=== PATIENT | female | born 1935 | race Caucasian/White ===

== ENCOUNTER 2016-07-17 16:09 | Emergency (ER) | payer OTHER ==
--- NOTE | 2016-07-17 17:03 | DIAGNOSTIC IMAGING REPORT ---
PROCEDURE: CT HEAD WITHOUT CONTRAST INDICATION: TRAUMA/INJURY TECHNIQUE: Axial CT images were acquired through the head. Coronal and sagittal reformations were created. COMPARISON: None. FINDINGS: Mild cerebral cortical atrophy. Moderate hypodensity in the periventricular and subcortical white matter. 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 No intracranial hemorrhage or extraaxial fluid collections. Ventricles are normal in size, shape and position. There is no mass, mass effect or midline shift. The calvarium is intact. The paranasal sinuses and mastoid air cells are normally aerated. The extracranial soft tissues and orbits are normal. IMPRESSION: 1. No CT evidence of acute intracranial process. 2. Age related involutional and white matter changes. 3. Findings discussed with Tiara Martinez at 05:[address] scans at this facility use dose modulation, iterative reconstruction, and/or weight-based dosing when appropriate to reduce radiation dose to as low as reasonably achievable.
--- NOTE | 2016-07-17 17:03 | DIAGNOSTIC IMAGING REPORT ---
PROCEDURE: CT HEAD WITHOUT CONTRAST INDICATION: TRAUMA/INJURY TECHNIQUE: Axial CT images were acquired through the head. Coronal and sagittal reformations were created. COMPARISON: None. FINDINGS: Mild cerebral cortical atrophy. Moderate hypodensity in the periventricular and subcortical white matter. 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 No intracranial hemorrhage or extraaxial fluid collections. Ventricles are normal in size, shape and position. There is no mass, mass effect or midline shift. The calvarium is intact. The paranasal sinuses and mastoid air cells are normally aerated. The extracranial soft tissues and orbits are normal. IMPRESSION: 1. No CT evidence of acute intracranial process. 2. Age related involutional and white matter changes. 3. Findings discussed with iTara Martinez at 05:[address] scans at this facility use dose modulation, iterative reconstruction, and/or weight-based dosing when appropriate to reduce radiation dose to as low as reasonably achievable.
--- NOTE | 2016-07-17 17:05 | ED CLINICAL REPORT ---
Clinical Report - Physicians/Mid Levels [facility] [address] [place] [address] 07/17/2016 16:12 Patient: ONEL CANALES Time Seen: 16:19; upon arrival, initial patient contact, initial documentation, patient care assumed. Arrived- By private vehicle. Historian- patient. HISTORY OF PRESENT ILLNESS Chief Complaint: FALL. Location of injuries- head. The injury occurred today. Fell while walking and landed on a carpeted surface; tripped (over her slipper). Occurred at home. The patient complains of mild pain. The patient sustained a blow to the head. No neck pain, loss of consciousness or seizure. Not dazed. (ems came to house after incident and pt denied tx, went to clinic towboat captain and sent here for further eval). REVIEW OF SYSTEMS No numbness, dizziness, loss of vision, chest pain or difficulty breathing. No weakness, headache, abdominal pain or laceration. She has no pain on weight bearing. All systems otherwise negative, except as recorded above. PAST HISTORY See nurses notes. PROBLEMS: Skin cancer . --16:49 Gris Underwood R.N. ADDITIONAL SURGERIES: Appendectomy. Bunion removal . Hysterectomy. Hysterectomy . Parathyroidectomy. --16:49 Gris Underwood R.N. SOCIAL HISTORY Never smoker. No alcohol use or drug use. No recent travel. Is a local resident. FAMILY HISTORY No significant family medical history. ADDITIONAL NOTES The nursing notes have been reviewed with agreement regarding the chief complaint, HPI, ROS, PMH and patient medications and allergies. PHYSICAL EXAM Vital Signs: 07/17/2016 16:25 BP: 181/77. HR: 74. RR: 18. O2 saturation: 92%. Temp: 98.4 F. Have been reviewed as normal and appear to be correct. Appearance: Alert. Oriented X3. No acute distress. Head: Swelling of head present. Head non-tender. Right anglican: mild swelling and small ecchymosis of the upper anterior aspect of the right anglican. No erythema, tenderness, laceration, abrasion or puncture wound. No foreign body or deformity. Eyes: Pupils equal, round and reactive to light. EOM intact. ENT: No dental injury. Pharynx normal. Neck: Painless ROM. Non-tender. CVS: Heart sounds normal. Pulses normal. Respiratory: Breath sounds normal. Chest nontender. Abdomen: No visible injury. Soft and nontender. Back: No tenderness. ROM normal. Skin: Skin intact. Skin warm and dry. Normal skin color. Normal skin turgor. Extremities: Normal inspection. Pelvis stable. Extremities atraumatic. No lower extremity edema. Neuro: Oriented X 3. No motor deficit. No sensory deficit. LABS, X-RAYS, AND EKG CT Head: No acute disease. The study was interpreted by the radiologist and discussed with the radiologist. Interpretation time: 17:02. PROGRESS AND PROCEDURES Patient counseled in person regarding the patient's stable condition, test results and diagnosis. 17:02. Differential Diagnosis: Other possible considerations: fall, head injury, contusion, sprain, fx, lac, abrasion. Above considerations are based on history, physical exam and other information. Differential diagnosis was discussed with patient. Disposition: Discharged home in good and unchanged condition (17:04). Condition: good and stable. CLINICAL IMPRESSION Single contusion to the forehead.No hematoma or skin abrasion. Fall on same level by tripping. INSTRUCTIONS Warnings: HEAD INJURY PRECAUTIONS: An observer must check on the patient frequently for the next 24 hours to confirm that the patient responds as expected, is not confused, has no new weakness or numbness, and has no other problems. GENERAL WARNINGS: Return or contact your physician immediately if your condition worsens or changes unexpectedly, if not improving as expected, or if other problems arise. SPECIFICALLY, return if you develop numbness or incontinence of feces (loss of bowel control) or urine (loss of bladder control). Follow-up: Follow up with your doctor in about two days even if well. Call for an appointment. Summary of care provided to patient. Understanding of the discharge instructions verbalized by patient. (Electronically signed by Tiara Martinez A.R.N.P. 07/17/2016 18:33)
--- NOTE | 2016-07-17 17:05 | ED NURSING NOTES ---
Clinical Report - Nurses [facility] [address] [place] [address] 07/17/2016 16:12 Patient: ONEL CANALES TRIAGE Triage time 16:20 Jul 17 2016. Acuity: LEVEL 3. Chief Complaint: FALL while standing, onto a carpeted surface and landed on their head; lost balance. 16:25 07/17/16. SEPSIS SCREEN: Sepsis Screen. Negative (no infection suspected/documented). DAVID COMA SCORE: [place] Coma Scale: 15- eyes open spontaneously (4); best verbal response- oriented x 4 (5); best motor response- obeys commands (6). --16:43 Gris Underwood R.N. 16:25 07/17/16. BP: 181/77. HR: 74. RR: 18. O2 saturation: 92%. Temp: 98.4 F. Pain level now 2/10. --16:43 Gris Underwood R.N. Weight: 66.6 kg stated. Height/Length: 60 inches Per Patient. BMI: 28.7. --16:51 Gris Underwood R.N. Medications Venlafaxine HCl ER Oral (Tablet Extended Release 24 Hour 37.5 mg) 1 tablet. --16:37 Gris Underwood R.N. Pantoprazole Sodium Oral 40 mg, daily. --16:38 Gris Underwood R.N. Premarin Oral (Tablet 0.625 mg) 1 tablet, daily. --16:38 Gris Underwood R.N. LamoTRIgine Oral (Tablet Dispersible 100 mg) 2 tablets. --16:39 Gris Underwood R.N. Allergies No Known Drug Allergy. --16:39 Gris Underwood R.N. History Arrived by private vehicle. Historian: patient. Accompanied by friend. Primary physician (). This occurred (0500 AM). Occurred at home. She has had dizziness and neck pain (slight "stiff" per pt). She has had trouble walking. The patient has been limping when trying to walk. No loss of consciousness. No alteration in mental status, extremity pain, back pain, limited ROM present or difficulty breathing. Treatment NET APPLICATIONS DEVELOPER: None. Trauma activation: Pre-hospital notification of patient arrival was not received. PAST MEDICAL HX: Osteoporosis. No history of diabetes mellitus, heart disease, stroke or hypertension. No history of dementia. Tetanus status: unknown. SOCIAL HX: No infectious disease exposure. SELF HARM ASSESSMENT: A self harm assessment was performed. The patient answered "no" to the question "Have you recently felt down, depressed, or hopeless?" and "Do you have thoughts of harming or killing yourself?". NUTRITIONAL RISK ASSESSMENT: The nutritional risk assessment revealed no deficiencies. FUNCTIONAL ASSESSMENT: Functional assessment: no impairments noted. LEARNING NEEDS ASSESSMENT: The learning needs assessment revealed no barriers. ABUSE ASSESSMENT: Abuse assessment: (yes) The patient was asked "Do you feel safe in your home?". FALL RISK ASSESSMENT: Fall risk assessment completed. Risk factors identified include nausea, dizziness and patient age greater than 65 years, history of fall and impairment of mobility. Fall interventions initiated. Side rails up x2. Brakes on Bed in low position. Patient visible from nurses' station and identified as a fall risk. Call light in reach of patient. Instructed not to get up without assistance. SKIN INTEGRITY ASSESSMENT: Skin integrity risk assessment completed. No skin integrity risk identified. --16:43 Gris Underwood R.N. SOCIAL HX: Never smoker. No alcohol use or drug use. --16:49 Gris Underwood R.N. PROBLEMS: Skin cancer . --16:49 Gris Underwood R.N. ADDITIONAL SURGERIES: Appendectomy. Bunion removal . Hysterectomy. Hysterectomy . Parathyroidectomy. --16:49 Gris Underwood R.N. Interventions ID band on patient. --16:43 Gris Underwood R.N. PHYSICAL ASSESSMENT Ambulatory to room. GENERAL / NEURO / PSYCH: Alert. Oriented X 4. Appears in no acute distress. Pupillary exam: Right pupil 3mm, round and briskly reactive. HEENT: Pupils equal, round and reactive to light. Head: tenderness and abrasion present in the right temporal area. Head non-tender. RESPIRATORY: Respirations not labored. Chest nontender. Breath sounds within normal limits. CVS: Normal heart rate and rhythm. Pulses within normal limits. Capillary refill less than 2 seconds. GI / : Abdomen soft and nontender. ( Last BM this am. States goes to the bathroom every two hours no burning or pain.). EXTREMITIES: Extremities exhibit normal ROM. Neuro-vascular status intact to the extremity. SKIN: Skin intact. Skin is warm and dry. --16:51 Gris Underwood R.N. NURSING PROGRESS NOTES The initial plan of care for this patient includes an assessment with efforts to address the patient's anxiety; patient positioning and appropriate ambient lighting; impairment of the neurological system; mobility impairments. This plan of care was discussed with the patient. Reassurance given. Call light placed in reach. Side rails up x 2. Bed placed in lowest position. Brakes of bed on. --16:51 Gris Underwood R.N. DISPOSITION / DISCHARGE Departure time: Jul 17 2016. Condition at departure: improved. No learning barriers present. Discharge instructions provided and reviewed with the patient. Reviewed warnings. Reviewed medication(s). Treatments reviewed. Reviewed referrals. Patient verbalized understanding. Written instructions provided in Yakut. The patient was discharged home and accompanied by conflicts analyst. She left the Emergency Department ambulatory and via private vehicle. Roller Repairer driving. --17:28 Gris Underwood R.N. 17:27 07/17/16. BP: 177/80. HR: 69. RR: 18. O2 saturation: 97%. Temp: 98.4 F. Pain level now 2/10. --17:28 Gris Underwood R.N. Departure time: 17:Jul 17 2016. ( Patient has a follow up appointment for tomorrow.). --17:29 Gris Underwood R.N. Locked/Released at 07/20/2016 18:36 by Gris Underwood R.N.
--- NOTE | 2016-07-17 17:05 | ED ORDER SUMMARY ---
..... Patient: ONEL CANALES OrderSheet [facility] VisitID: [id number] [address] [place] [address] 81y, F Registration Date/Time: 07/17/2016 ORDER SHEET Weight: 66.6 kg (stated) Allergies: No Known Drug Allergy GENERAL ORDERS: CT Head wo Cont Urgent (16:28 07/17/2016 Rubin A.R.N.P.) ([facility] 16:48 [facility]) MEDICATION ORDERS: IV FLUIDS: ORDER SHEET NOTES: [Electronically signed by Tiara MartinezR.N.P. (18:33 07/17/2016)] [Electronically signed by Gris Underwood R.N. (18:36 07/20/2016)] [Electronically locked/signed by Gris Underwood R.N. (18:36 07/20/2016)]
--- NOTE | 2016-07-17 17:05 | ED NURSING NOTES ---
Clinical Report - Nurses [facility] [address] [place] [address] 07/17/2016 16:12 Patient: ONEL CANALES TRIAGE Triage time 16:20 Jul 17 2016. Acuity: LEVEL 3. Chief Complaint: FALL while standing, onto a carpeted surface and landed on their head; lost balance. 16:25 07/17/16. SEPSIS SCREEN: Sepsis Screen. Negative (no infection suspected/documented). DAVID COMA SCORE: [place] Coma Scale: 15- eyes open spontaneously (4); best verbal response- oriented x 4 (5); best motor response- obeys commands (6). --16:43 Gris Underwood R.N. 16:25 07/17/16. BP: 181/77. HR: 74. RR: 18. O2 saturation: 92%. Temp: 98.4 F. Pain level now 2/10. --16:43 Gris Underwood R.N. Weight: 66.6 kg stated. Height/Length: 60 inches Per Patient. BMI: 28.7. --16:51 Gris Underwood R.N. Medications Venlafaxine HCl ER Oral (Tablet Extended Release 24 Hour 37.5 mg) 1 tablet. --16:37 Gris Underwood R.N. Pantoprazole Sodium Oral 40 mg, daily. --16:38 Gris Underwood R.N. Premarin Oral (Tablet 0.625 mg) 1 tablet, daily. --16:38 Gris Underwood R.N. LamoTRIgine Oral (Tablet Dispersible 100 mg) 2 tablets. --16:39 Gris Underwood R.N. Allergies No Known Drug Allergy. --16:39 Gris Underwood R.N. History Arrived by private vehicle. Historian: patient. Accompanied by friend. Primary physician (). This occurred (0500 AM). Occurred at home. She has had dizziness and neck pain (slight "stiff" per pt). She has had trouble walking. The patient has been limping when trying to walk. No loss of consciousness. No alteration in mental status, extremity pain, back pain, limited ROM present or difficulty breathing. Treatment MASTER BARBER: None. Trauma activation: Pre-hospital notification of patient arrival was not received. PAST MEDICAL HX: Osteoporosis. No history of diabetes mellitus, heart disease, stroke or hypertension. No history of dementia. Tetanus status: unknown. SOCIAL HX: No infectious disease exposure. SELF HARM ASSESSMENT: A self harm assessment was performed. The patient answered "no" to the question "Have you recently felt down, depressed, or hopeless?" and "Do you have thoughts of harming or killing yourself?". NUTRITIONAL RISK ASSESSMENT: The nutritional risk assessment revealed no deficiencies. FUNCTIONAL ASSESSMENT: Functional assessment: no impairments noted. LEARNING NEEDS ASSESSMENT: The learning needs assessment revealed no barriers. ABUSE ASSESSMENT: Abuse assessment: (yes) The patient was asked "Do you feel safe in your home?". FALL RISK ASSESSMENT: Fall risk assessment completed. Risk factors identified include nausea, dizziness and patient age greater than 65 years, history of fall and impairment of mobility. Fall interventions initiated. Side rails up x2. Brakes on Bed in low position. Patient visible from nurses' station and identified as a fall risk. Call light in reach of patient. Instructed not to get up without assistance. SKIN INTEGRITY ASSESSMENT: Skin integrity risk assessment completed. No skin integrity risk identified. --16:43 Gris Underwood R.N. SOCIAL HX: Never smoker. No alcohol use or drug use. --16:49 Gris Underwood R.N. PROBLEMS: Skin cancer . --16:49 Gris Underwood R.N. ADDITIONAL SURGERIES: Appendectomy. Bunion removal . Hysterectomy. Hysterectomy . Parathyroidectomy. --16:49 Gris Underwood R.N. Interventions ID band on patient. --16:43 Gris Underwood R.N. PHYSICAL ASSESSMENT Ambulatory to room. GENERAL / NEURO / PSYCH: Alert. Oriented X 4. Appears in no acute distress. Pupillary exam: Right pupil 3mm, round and briskly reactive. HEENT: Pupils equal, round and reactive to light. Head: tenderness and abrasion present in the right temporal area. Head non-tender. RESPIRATORY: Respirations not labored. Chest nontender. Breath sounds within normal limits. CVS: Normal heart rate and rhythm. Pulses within normal limits. Capillary refill less than 2 seconds. GI / : Abdomen soft and nontender. ( Last BM this am. States goes to the bathroom every two hours no burning or pain.). EXTREMITIES: Extremities exhibit normal ROM. Neuro-vascular status intact to the extremity. SKIN: Skin intact. Skin is warm and dry. --16:51 Gris Underwood R.N. NURSING PROGRESS NOTES The initial plan of care for this patient includes an assessment with efforts to address the patient's anxiety; patient positioning and appropriate ambient lighting; impairment of the neurological system; mobility impairments. This plan of care was discussed with the patient. Reassurance given. Call light placed in reach. Side rails up x 2. Bed placed in lowest position. Brakes of bed on. --16:51 Gris Underwood R.N. DISPOSITION / DISCHARGE Departure time: Jul 17 2016. Condition at departure: improved. No learning barriers present. Discharge instructions provided and reviewed with the patient. Reviewed warnings. Reviewed medication(s). Treatments reviewed. Reviewed referrals. Patient verbalized understanding. Written instructions provided in Greek. The patient was discharged home and accompanied by emergency vehicle operations instructor. She left the Emergency Department ambulatory and via private vehicle. Scrap Worker driving. --17:28 Gris Underwood R.N. 17:27 07/17/16. BP: 177/80. HR: 69. RR: 18. O2 saturation: 97%. Temp: 98.4 F. Pain level now 2/10. --17:28 Gris Underwood R.N. Departure time: 17:Jul 17 2016. ( Patient has a follow up appointment for tomorrow.). --17:29 Gris Underwood R.N. Locked/Released at 07/20/2016 18:36 by Gris Underwood R.N.
--- NOTE | 2016-07-17 17:05 | ED CLINICAL REPORT ---
Clinical Report - Physicians/Mid Levels [facility] [address] [place] [address] 07/17/2016 16:12 Patient: ONEL CANALES Time Seen: 16:19; upon arrival, initial patient contact, initial documentation, patient care assumed. Arrived- By private vehicle. Historian- patient. HISTORY OF PRESENT ILLNESS Chief Complaint: FALL. Location of injuries- head. The injury occurred today. Fell while walking and landed on a carpeted surface; tripped (over her slipper). Occurred at home. The patient complains of mild pain. The patient sustained a blow to the head. No neck pain, loss of consciousness or seizure. Not dazed. (ems came to house after incident and pt denied tx, went to clinic sloop captain and sent here for further eval). REVIEW OF SYSTEMS No numbness, dizziness, loss of vision, chest pain or difficulty breathing. No weakness, headache, abdominal pain or laceration. She has no pain on weight bearing. All systems otherwise negative, except as recorded above. PAST HISTORY See nurses notes. PROBLEMS: Skin cancer . --16:49 Gris Underwood R.N. ADDITIONAL SURGERIES: Appendectomy. Bunion removal . Hysterectomy. Hysterectomy . Parathyroidectomy. --16:49 Gris Underwood R.N. SOCIAL HISTORY Never smoker. No alcohol use or drug use. No recent travel. Is a local resident. FAMILY HISTORY No significant family medical history. ADDITIONAL NOTES The nursing notes have been reviewed with agreement regarding the chief complaint, HPI, ROS, PMH and patient medications and allergies. PHYSICAL EXAM Vital Signs: 07/17/2016 16:25 BP: 181/77. HR: 74. RR: 18. O2 saturation: 92%. Temp: 98.4 F. Have been reviewed as normal and appear to be correct. Appearance: Alert. Oriented X3. No acute distress. Head: Swelling of head present. Head non-tender. Right methodist: mild swelling and small ecchymosis of the upper anterior aspect of the right methodist. No erythema, tenderness, laceration, abrasion or puncture wound. No foreign body or deformity. Eyes: Pupils equal, round and reactive to light. EOM intact. ENT: No dental injury. Pharynx normal. Neck: Painless ROM. Non-tender. CVS: Heart sounds normal. Pulses normal. Respiratory: Breath sounds normal. Chest nontender. Abdomen: No visible injury. Soft and nontender. Back: No tenderness. ROM normal. Skin: Skin intact. Skin warm and dry. Normal skin color. Normal skin turgor. Extremities: Normal inspection. Pelvis stable. Extremities atraumatic. No lower extremity edema. Neuro: Oriented X 3. No motor deficit. No sensory deficit. LABS, X-RAYS, AND EKG CT Head: No acute disease. The study was interpreted by the radiologist and discussed with the radiologist. Interpretation time: 17:02. PROGRESS AND PROCEDURES Patient counseled in person regarding the patient's stable condition, test results and diagnosis. 17:02. Differential Diagnosis: Other possible considerations: fall, head injury, contusion, sprain, fx, lac, abrasion. Above considerations are based on history, physical exam and other information. Differential diagnosis was discussed with patient. Disposition: Discharged home in good and unchanged condition (17:04). Condition: good and stable. CLINICAL IMPRESSION Single contusion to the forehead.No hematoma or skin abrasion. Fall on same level by tripping. INSTRUCTIONS Warnings: HEAD INJURY PRECAUTIONS: An observer must check on the patient frequently for the next 24 hours to confirm that the patient responds as expected, is not confused, has no new weakness or numbness, and has no other problems. GENERAL WARNINGS: Return or contact your physician immediately if your condition worsens or changes unexpectedly, if not improving as expected, or if other problems arise. SPECIFICALLY, return if you develop numbness or incontinence of feces (loss of bowel control) or urine (loss of bladder control). Follow-up: Follow up with your doctor in about two days even if well. Call for an appointment. Summary of care provided to patient. Understanding of the discharge instructions verbalized by patient. (Electronically signed by Tiara Martinez A.R.N.P. 07/17/2016 18:33)
--- NOTE | 2016-07-17 17:05 | ED ORDER SUMMARY ---
..... Patient: ONEL CANALES OrderSheet [facility] VisitID: [id number] [address] [place] [address] 81y, F Registration Date/Time: 07/17/2016 ORDER SHEET Weight: 66.6 kg (stated) Allergies: No Known Drug Allergy GENERAL ORDERS: CT Head wo Cont Urgent (16:28 07/17/2016 Rubin A.R.N.P.) ([facility] 16:48 [facility]) MEDICATION ORDERS: IV FLUIDS: ORDER SHEET NOTES: [Electronically signed by Tiara MartinezR.N.P. (18:33 07/17/2016)] [Electronically signed by Gris Underwood R.N. (18:36 07/20/2016)] [Electronically locked/signed by Gris Underwood R.N. (18:36 07/20/2016)]
--- NOTE | 2016-07-20 18:37 | ED MED RECONCILIATION SUMMARY ---
Patient: ONEL CANALES Medication Reconciliation Report [facility] VisitID: [id number] [address] [place] [address] 81y, F Registration Date/Time: 07/17/2016 Weight: 66.6 kg Height/Length: 60 in. BMI: 28.7 ALLERGIES: No Known Drug Allergy The patient's Home Medications are listed below: THE FOLLOWING MEDICATIONS NEED TO BE RECONCILED: LamoTRIgine Oral (100 mg) 2 tablets Pantoprazole Sodium Oral 40 mg, daily Premarin Oral (0.625 mg) 1 tablet, daily Venlafaxine HCl ER Oral (37.5 mg) 1 tablet The source(s) of the original Home Medication information: Not obtained. The following Medications were given to the patient in the Emergency Department: None. The following Medications were prescribed to the patient: None.
--- NOTE | 2016-07-20 18:37 | ED MED RECONCILIATION SUMMARY ---
Patient: ONEL CANALES Medication Reconciliation Report [facility] VisitID: [id number] [address] [place] [address] 81y, F Registration Date/Time: 07/17/2016 Weight: 66.6 kg Height/Length: 60 in. BMI: 28.7 ALLERGIES: No Known Drug Allergy The patient's Home Medications are listed below: THE FOLLOWING MEDICATIONS NEED TO BE RECONCILED: LamoTRIgine Oral (100 mg) 2 tablets Pantoprazole Sodium Oral 40 mg, daily Premarin Oral (0.625 mg) 1 tablet, daily Venlafaxine HCl ER Oral (37.5 mg) 1 tablet The source(s) of the original Home Medication information: Not obtained. The following Medications were given to the patient in the Emergency Department: None. The following Medications were prescribed to the patient: None.
--- NOTE | 2016-07-20 18:37 | ED DISCHARGE INSTRUCTIONS ---
Patient: ONEL CANALES General Instructions [facility] VisitID: [id number] [place] [address] 81y, F Registration Date/Time: 07/17/2016 Single contusion to the forehead.No hematoma or skin abrasion. Fall on same level by tripping. INSTRUCTIONS Warnings: HEAD INJURY PRECAUTIONS: An observer must check on the patient frequently for the next 24 hours to confirm that the patient responds as expected, is not confused, has no new weakness or numbness, and has no other problems. GENERAL WARNINGS: Return or contact your physician immediately if your condition worsens or changes unexpectedly, if not improving as expected, or if other problems arise. SPECIFICALLY, return if you develop numbness or incontinence of feces (loss of bowel control) or urine (loss of bladder control). Follow-up: Follow up with your doctor in about two days even if well. Call for an appointment. Summary of care provided to patient. Understanding of the discharge instructions verbalized by patient. ADDITIONAL INFORMATION Mechanical Fall You have had a fall today. It appears that the cause is mechanical. That means that you slipped, tripped or lost your balance. If your fall had been due to fainting or a seizure, further tests would be required. Home Care: Rest today and resume your normal activities when you are feeling back to normal. If you were injured during the fall, follow the advice from your doctor regarding care of your injury. You may use acetaminophen (Tylenol) or ibuprofen (Motrin, Advil) to control pain, unless another pain medicine was prescribed. [NOTE: If you have chronic liver or kidney disease or ever had a stomach ulcer or GI bleeding, talk with your doctor before using these medicines.] Fall Prevention: Was there anything that caused your fall that can be fixed, removed, or replaced? Make your home safe by keeping walkways clear of objects you may trip over. Use non-slip pads under rugs. Do not walk in poorly lit areas. Do not stand on chairs or wobbly ladders. Use caution when reaching overhead or looking upward. This position can cause a loss of balance. Be sure your shoes fit properly, have non-slip bottoms and are in good condition. Be cautious when going up and down curbs, and walking on uneven sidewalks. If your balance is poor, consider using a cane or walker. Stay as active as you can. Balance, flexibility, strength, and endurance all come from exercise. They all play a role in preventing falls. Follow Up with your doctor or as advised by our staff. Get Prompt Medical Attention if any of the following occur: Repeated mechanical falls, or unexplained falls Dizziness, fainting or seizure Severe headache Chest pain or shortness of breath Palpitations (very rapid or very slow or irregular heartbeat) Blood in vomit, stools (black or red color) Weakness of an arm or leg or one side of the face Difficulty with speech or vision Contusion,Soft Tissue You have a CONTUSION, which is a bruise with swelling and some bleeding under the skin. There are no broken bones. This injury takes a few days to a few weeks to heal. Home Care: 1) Keep the injured part elevated to reduce pain and swelling. This is especially important during the first 48 hours. 2) Make an ice pack (ice cubes in a plastic bag, wrapped in a towel) and apply for 20 minutes every 1-2 hours the first day. Continue this 3-4 times a day until the pain and swelling goes away. 3) You may use acetaminophen (Tylenol) or ibuprofen (Motrin, Advil) to control pain, unless another pain medicine was prescribed. [ NOTE : If you have chronic liver or kidney disease or ever had a stomach ulcer or GI bleeding, talk with your doctor before using these medicines.] Follow Up with your doctor or this facility if you are not improving within the next THREE days. [NOTE: If X-rays were taken, they will be reviewed by a radiologist. You will be notified of any new findings that may affect your care.] Get Prompt Medical Attention if any of the following occur: -- Pain or swelling increases -- Injured arm or leg becomes cold, blue, numb or tingly -- Redness, warmth or drainage from the skin Facial Contusion (No Wake-Up) A facial contusion is a bruise with swelling and sometimes bleeding under the skin. The swelling should start to go down within two days. Although there may be no signs of a serious injury at this time, symptoms may appear later which could be a sign of a more serious problem. Therefore, watch for the warning signs below. Home care The following guidelines will help you care for your injury at home: If you have swelling of the face, apply an ice pack (ice cubes in a plastic bag, wrapped in a towel) for 20 minutes every 12 hours until the swelling starts to go down. If you have scrapes or cuts on your face, clean them daily with soap and water. Apply an antibiotic ointment or cream for the first few days to prevent infection. You may use acetaminophen or ibuprofen to control pain, unless another pain medicine was prescribed.If you have chronic liver or kidney disease or ever had a stomach ulcer or GI bleeding, talk with your doctor before using these medicines. Do not use ibuprofen in children under six months of age. For the next 24 hours: Do not take alcohol, sedatives or medicines that make you sleepy. Do not drive or operate machinery. Avoid strenuous activities. No lifting or straining. If you have had any symptoms of aconcussiontoday (nausea, vomiting, dizziness, confusion, headache, memory loss or if you were knocked out), do not return to sports or any activity that could result in another head injury until all symptoms are gone and you have been cleared by your doctor. A second head injury before fully recovering from the first one can lead to serious brain injury. Follow-up care Follow up with your doctor in one week or as directed. Note: Any X-rays or CT scans taken will be reviewed by a radiologist. You will be notified of any new findings that may affect your care. When to seek medical care Get prompt medical attention if any of the following occur: Repeated vomiting Severe or worsening headache or dizziness Unusual drowsiness, or unable to awaken as usual Confusion or change in behavior or speech, memory loss, blurred vision Convulsion (seizure) Increasing scalp or face swelling Redness, warmth or pus from the swollen area Fluid drainage or bleeding from the nose or ears Fever of 100.4F (38C) or higher, or as directed by your health care provider Increasing jaw pain with chewing or increasing pain in the sinuses Nose looks crooked or cannot breathe through your nose after swelling goes down Head Injury, No Wake-Up (Adult) You have had a head injury. It does not appear serious at this time. Symptoms of a more serious problem (concussion, bruising, or bleeding in the brain) may appear later. Therefore, watch for the WARNING SIGNS listed below. Home Care: Your healthcare provider will tell you whether its okay to drive. If so, you can drive yourself home. For the next day or so, be careful when driving or using heavy machinery until you are sure you have no delayed symptoms. During the next 24 hours someone must stay with you to check for the signs below. It is not necessary to stay awake or be awakened during the night. If you have swelling of the face or scalp, apply an ice pack (ice cubes in a plastic bag, wrapped in a towel) for 20 minutes. Do this every 1-2 hours until the swelling starts to go down. Do not use aspirin or ibuprofen (Motrin, Advil) after a head injury.You may use acetaminophen (Tylenol)to control pain, unless another pain medicine was prescribed. [NOTE: If you have chronic liver or kidney disease or ever had a stomach ulcer or GI bleeding, talk with your doctor before using these medicines.] For the next 24 hours: Do not take alcohol, sedatives or medicines that make you sleepy. Avoid strenuous activities. No lifting or straining. If you have had any symptoms of a concussion today (nausea, vomiting, dizziness, confusion, headache, memory loss or if you were knocked out), do not return to sports or any activity that could result in another head injury until all symptoms are gone and you have been cleared by your doctor. A second head injury before fully recovering from the first one can lead to serious brain injury. Follow Up with your doctor if symptoms are not improving after 24 hours, or as directed. [NOTE: A radiologist will review any X-rays or CT scans that were taken. We will notify you of any new findings that may affect your care.] Get Prompt Medical Attention if any of the followingWARNING SIGNS occur: Repeated vomiting Severe or worsening headache or dizziness Unusual drowsiness, or unable to awaken as usual Confusion or change in behavior or speech, memory loss, blurred vision Convulsion (seizure) Increasing scalp or face swelling Redness, warmth or pus from the swollen area Fluid drainage or bleeding from the nose or ears You have been given the following additional information: Fall, Mechanical Contusion, Soft Tissue Facial Contusion, No Wakeup HEAD INJURY, No Wake-Up (Adult) (Electronically signed by Tiara Martinez A.R.N.P. 07/17/2016 18:33)
--- NOTE | 2016-07-20 18:37 | ED MAR SUMMARY ---
..... Medication Administration Record [facility] [address] [place] [address] Patient: ONEL CANALES Visit ID: [id number] 81y, F Weight: 66.6 kg Height/Length: 60 in BMI: 28.7 ALLERGIES: No Known Drug Allergy
--- NOTE | 2016-07-20 18:37 | ED MAR SUMMARY ---
..... Medication Administration Record [facility] [address] [place] [address] Patient: ONEL CANALES Visit ID: [id number] 81y, F Weight: 66.6 kg Height/Length: 60 in BMI: 28.7 ALLERGIES: No Known Drug Allergy
== END 2016-07-17 17:30 | disposition home or self-care (01) ==
LOC: ED SRH 16:09
DX: S00.83XA Contusion of other part of head, initial encounter (principal); W01.0XXA Fall on same level from slipping, tripping and stumbling without subsequent striking against object, initial encounter; Y92.009 Unspecified place in unspecified non-institutional (private) residence as the place of occurrence of the external cause; Y93.01 Activity, walking, marching and hiking; Y99.9 Unspecified external cause status